=== PATIENT | male | born 1935 | race Caucasian/White ===

== ENCOUNTER 2017-07-30 19:24 | Emergency (ER) | payer MEDICARE, BC ==
[2017-07-30 19:55] LABS: Hemoglobin 15.1 g/dL (14.0-18.0); Mean Corpuscular HGB CONC 33.8 g/dL (32.0-36.0); Mean Corpuscular Hemoglobin 31.3 pg (27.0-31.0); Mean Corpuscular Volume 92.5 fl (80.0-94.0); RBC Distribution Width 13.9 % (11.5-14.5); Red Blood Cell (RBC) Count 4.84 mill/uL (4.70-6.10); White Blood Cell (WBC) Count 6.1 thou/uL (4.8-10.8)
--- NOTE | 2017-07-30 20:08 | RAD ---
RADIOGRAPH CHEST: Indication: Weakness, altered mental status. Comparison: 03-25-16 FINDINGS: There is enlargement of the cardiac silhouette and bilateral pulmonary vascular congestion. Interstit ial prominence and alveolar opacities. Hazy density at the lower hemithoraces may be on the basis of small volume pleural fluid. There are extrinsic artifacts limiting detail. There is vascular calcific ation and osseous degenerative changes. IMPRESSION: Findings favoring decompensated CHF. Recommend continued imaging follow up to confirm resolution. POS: [facility]
[2017-07-30 20:13] LABS: ALT (SGPT) 10 U/L (8-55); AST (SGOT) 15 U/L (5-34); Albumin 3.8 g/dL (3.4-4.8); Alkaline Phosphatase 128 U/L (40-150); Anion Gap 12 mmol/L (10-20); BUN (Urea Nitrogen) 26 mg/dL (8.4-25.7); Bilirubin, Total 1.8 mg/dL (0.2-1.2); CK (CPK) 67 U/L (30-200); Calc. Creatinine Clearance 0 mL/min (70-130); Calcium 9.6 mg/dL (7.8-10.44); Carbon Dioxide 27 mmol/L (23-31); Chloride 102 mmol/L (98-107); Estimated GFR-MDRD 39; Globulin 3.2 g/dL (2.4-3.5); Glucose 155 mg/dL (83-110); Potassium 3.6 mmol/L (3.5-5.1); Sodium 137 mmol/L (136-145)
[2017-07-30 20:17] LABS: CKMB 1.5 ng/mL (0-6.6); Troponin I 0.076 ng/mL (< 0.028)
[2017-07-30 20:18] LABS: Bilirubin Small (Negative); Blood, Urine Negative (Negative); Clarity CLEAR (Clear); Glucose, Urine (Dipstick) Negative (Negative); Leukocyte Negative (Negative); Nitrite Negative (Negative); Protein, Urine (Dipstick) Trace mg/dL (Neg-Trace); pH, Urine 5.5 (5.0-9.0)
[2017-07-30 20:21] LABS: #Eosinphils 0.1 thou/uL (0.0-0.7); #Lymphocytes 0.9 thou/uL (1.20-3.40); #Monocytes 0.7 thou/uL (0.11-0.59); #Neutrophils 4.5 thou/uL (1.40-6.50); %Eosinophils 1.1 % (0.0-10.0); %Lymphocytes 13.8 % (21.0-51.0); %Monocytes 11.8 % (0.0-10.0); %Neutrophils 73.3 % (42.0-75.0); Mean Platelet Volume 9.1 fL (7.4-10.4); PLT Morphology Comment Appears Decreased; Platelet Count 113 thou/uL (130-400); RBC Morphology Normal
== END 2017-07-30 22:55 | disposition home or self-care (01) ==
LOC: ERS 19:24
DX: I11.0 Hypertensive heart disease with heart failure (principal); I50.9 Heart failure, unspecified; I25.2 Old myocardial infarction; G30.9 Alzheimer's disease, unspecified; F02.80 Dementia in other diseases classified elsewhere, unspecified severity, without behavioral disturbance, psychotic disturbance, mood disturbance, and anxiety; E11.9 Type 2 diabetes mellitus without complications; Z87.891 Personal history of nicotine dependence; Z86.73 Personal history of transient ischemic attack (TIA), and cerebral infarction without residual deficits; Z79.899 Other long term (current) drug therapy; Z79.82 Long term (current) use of aspirin
CPT/HCPCS: 36416; 71045; 80053; 81003; 82553; 84484; 85025; 93005; 94760

== ENCOUNTER 2017-11-16 12:08 | Emergency (ER) | payer MEDICARE, BC ==
[2017-11-16 13:35] LABS: #Lymphocytes 0.6 thou/uL (1.20-3.40); #Monocytes 0.7 thou/uL (0.11-0.59); %Eosinophils 0.3 % (0.0-10.0); %Lymphocytes 7.9 % (21.0-51.0); %Monocytes 9.6 % (0.0-10.0); %Neutrophils 82.2 % (42.0-75.0); Hemoglobin 16.1 g/dL (14.0-18.0); Mean Corpuscular Hemoglobin 30.1 pg (27.0-31.0); Mean Corpuscular Volume 91.3 fL (78.0-98.0); Mean Platelet Volume 8.3 fL (7.4-10.4); Platelet Count 122 thou/uL (130-400); RBC Distribution Width 14.5 % (11.5-14.5); Red Blood Cell (RBC) Count 5.35 mill/uL (4.70-6.10); White Blood Cell (WBC) Count 7.3 thou/uL (4.8-10.8)
[2017-11-16 13:41] LABS: Bilirubin Small (Negative); Blood, Urine Negative (Negative); Clarity CLEAR (Clear); Glucose, Urine (Dipstick) Negative (Negative); Leukocyte Small (Negative); Nitrite Negative (Negative); Protein, Urine (Dipstick) 100 mg/dL (Neg-Trace); Specific Gravity, Urine 1.024 (1.002-1.036)
[2017-11-16 13:43] LABS: Bacteria/HPF None Seen HPF (None Seen); Hyaline Casts/LPF 7-10 HYALINE CAST LPF (0-3 Hyaline); Pathc Cast-AUWi Flag 0.58 (0-2.49); RBC/HPF 0-3 HPF (0-3); Squamous Epithelial 0-3 HPF (0-3); WBC/HPF 0-3 HPF (0-3)
--- NOTE | 2017-11-16 13:47 | RAD ---
SINGLE VIEW OF THE CHEST: Comparison: 07-30-17 History: Abdominal pain. Constipation. Weakness. FINDINGS: Single view of the chest shows an enlarged but stable cardiomediastinal silhouette. Atherosclerotic c alcifications are seen in the aorta. There is no evidence of consolidation, mass, or pleural effusion . Increased interstitial markings are stable. IMPRESSION: Cardiomegaly without evidence of acute cardiopulmonary disease. POS: [facility]
[2017-11-16 13:56] LABS: ALT (SGPT) 14 U/L (8-55); AST (SGOT) 18 U/L (5-34); Albumin 4.1 g/dL (3.4-4.8); Alkaline Phosphatase 141 U/L (40-150); Anion Gap 14 mmol/L (10-20); BUN (Urea Nitrogen) 27 mg/dL (8.4-25.7); CK (CPK) 93 U/L (30-200); Calc. Creatinine Clearance 0 mL/min (70-130); Carbon Dioxide 23 mmol/L (23-31); Chloride 106 mmol/L (98-107); Estimated GFR-MDRD 42; Globulin 3.5 g/dL (2.4-3.5); Glucose 117 mg/dL (83-110); Lipase 48 U/L (8-78); Potassium 4.2 mmol/L (3.5-5.1); Protein, Total 7.6 g/dL (5.8-8.1); Sodium 139 mmol/L (136-145)
[2017-11-16 14:05] LABS: CKMB 3.2 ng/mL (0-6.6); Troponin I 0.086 ng/mL (< 0.028)
[2017-11-16] MEDS ORDERED: hydrALAZINE 20 MG/ML VIAL ONE (15:24)
== END 2017-11-16 17:03 | disposition home or self-care (01) ==
LOC: ERS 12:08
DX: R53.1 Weakness (principal); I25.10 Atherosclerotic heart disease of native coronary artery without angina pectoris; F17.210 Nicotine dependence, cigarettes, uncomplicated; I11.0 Hypertensive heart disease with heart failure; I50.9 Heart failure, unspecified; Z86.73 Personal history of transient ischemic attack (TIA), and cerebral infarction without residual deficits; Z79.899 Other long term (current) drug therapy; Z79.82 Long term (current) use of aspirin
CPT/HCPCS: 36415; 71045; 80053; 81003; 81015; 82550; 82553; 83690; 84484; 85025; 87086; 93005; 96361; 96374; J0360

== ENCOUNTER 2018-01-08 10:07 | Observation (INO) | payer MEDICARE, BC ==
--- NOTE | 2018-01-08 10:37 | CT ---
NONCONTRAST HEAD CT: History: Woke up with total vision loss. Previous left eye blindness. Aphasia. Possible previous CVA. Comparison: 06-03-14 Technique: Noncontrast head CT is performed from skull base to skull vertex. FINDINGS: Limited evaluation of the skull base due to motion degradation. Stable hypodensity of the white matter due to a combination of chronic small vessel ischemic change a s well as areas of gliotic change involving the left cerebrum. There is evidence of a previous left M CA distribution infarct with encephalomalacia involving the left frontal and parietal lobes, near the vertex. The remainder of the left cerebrum has preservation of cortical dean white matter differenti ation. Right cortical dean white matter differentiation is also preserved. Remote lacunar infarct in the left lentiform nucleus. Stable configuration of the ventricular system. Unremarkable posterior fossa. Calvarium is intact. Cavernous carotid atherosclerosis is noted. Adequate aeration of the sinuses and mastoid air cells. IMPRESSION: No acute intracranial process. Findings discussed with Dr. Thomas 01-08-18 at 10:19 a.m. POS: [facility]
[2018-01-08 10:44] LABS: ALT (SGPT) 12 U/L (8-55); AST (SGOT) 15 U/L (5-34); Albumin 3.9 g/dL (3.4-4.8); Alkaline Phosphatase 136 U/L (40-150); Anion Gap 12 mmol/L (10-20); BUN (Urea Nitrogen) 27 mg/dL (8.4-25.7); Bilirubin, Total 1.8 mg/dL (0.2-1.2); Calc. Creatinine Clearance 0 mL/min (70-130); Calcium 9.6 mg/dL (7.8-10.44); Carbon Dioxide 25 mmol/L (23-31); Chloride 104 mmol/L (98-107); Estimated GFR-MDRD 42; Glucose 160 mg/dL (83-110); Potassium 4.5 mmol/L (3.5-5.1); Protein, Total 6.9 g/dL (5.8-8.1); Sodium 136 mmol/L (136-145)
[2018-01-08 10:45] LABS: CKMB 1.9 ng/mL (0-6.6)
[2018-01-08 10:50] LABS: INR-International Normal Ratio 1.1; PTT 28.4 SEC (22.9-36.1); Prothrombin Time 14.6 SEC (12.0-14.7)
[2018-01-08 11:13] LABS: #Lymphocytes 0.7 thou/uL (1.20-3.40); #Monocytes 0.5 thou/uL (0.11-0.59); #Neutrophils 5.1 thou/uL (1.40-6.50); %Basophils 0.1 % (0.0-1.0); %Eosinophils 0.7 % (0.0-10.0); %Lymphocytes 10.9 % (21.0-51.0); %Monocytes 7.1 % (0.0-10.0); %Neutrophils 81.2 % (42.0-75.0); Hemoglobin 16.2 g/dL (14.0-18.0); Mean Corpuscular HGB CONC 33.5 g/dL (32.0-36.0); Mean Corpuscular Hemoglobin 30.8 pg (27.0-31.0); Mean Corpuscular Volume 92.1 fL (78.0-98.0); Mean Platelet Volume 9.1 fL (7.4-10.4); PLT Morphology Comment Appears Decreased; Platelet Count 86 thou/uL (130-400); RBC Distribution Width 14.1 % (11.5-14.5); RBC Morphology Normal; Red Blood Cell (RBC) Count 5.26 mill/uL (4.70-6.10); White Blood Cell (WBC) Count 6.3 thou/uL (4.8-10.8)
--- NOTE | 2018-01-08 11:37 | CT ---
CT ANGIOGRAM OF THE HEAD CT ANGIOGRAM OF THE NECK: History: Patient woke up with total vision loss. Comparison: None. Technique: CT angiogram of the head and neck was performed in the axial plane. 3D reformatted images are submitted for interpretation. FINDINGS: There is no pathologic enhancement of the brain parenchyma. Bilateral ocular lenses are appropriately located. Both globes are intact. Retrobulbar fat is preserved. Symmetric attenuation of the optic ne rve and ocular rectus muscles. Aerodigestive tract is patent. No mucosal abnormality. Limited evaluation of the oral cavity due to a rtifact. The midline fatty roof of the tongue appears to be preserved. Epiglottic has a normal calibe r. Preepiglottic fat is preserved. No prevertebral soft tissue swelling. There are varying degrees of central canal stenosis and foraminal narrowing on the basis of degenerative change. There is anterol isthesis of C3 upon C4. Limited evaluation of the contents of the central spinal canal and neural for ella by technique. Symmetric attenuation of the sternocleidomastoid muscles. No evidence of lymphadenopathy. Symmetric a ttenuation of the parotid and submandibular glands. Minimal heterogeneous thyroid gland. Non-emergent thyroid ultrasound is recommended. Upper mediastinum is unremarkable. There is a small left sided pleural effusion. CT ANGIOGRAM: Visualized aortic arch has appropriate enhancement and luminal diameter. Right Parotid: The origin of the right carotid artery has appropriate enhancement and luminal diamete r. The right common carotid artery, carotid bifurcation has appropriate enhancement and luminal diame ter. There is short segment mild stenosis involving the proximal right internal carotid artery with a ssociated hairpin turn. The remainder of the right internal carotid artery has appropriate enhancemen t and luminal diameter. Left carotid: The origin of the left carotid artery has appropriate enhancement and lumen diameter. T he left common carotid artery, carotid bifurcation, and internal carotid artery have appropriate enha ncement in luminal diameter. There is small ulcerative plaque in the left carotid bifurcation measuri ng 3 mm. There is prominence of the left carotid bulb. Correlate for possible previous endarterectomy . There is no significant stenosis by NASCIT criteria. Both cervical vertebral arteries are patent throughout their course in the neck. Note, evaluation of both vertebral artery origins is somewhat limited but appear to be grossly unremarkable. Bilateral subclavian arteries are unremarkable. CT ANGIOGRAM OF THE HEAD: The distal cervical and intracranial internal carotid arteries demonstrate atherosclerosis without si gnificant stenosis. Anterior circulation: The A1 and M1 segments have symmetric enhancement and luminal diameter. Proxima l A2 segments and proximal MCA branches are also symmetric. No significant stenosis at the anterior c ircle of [place]. Posterior circulation: Left PICA artery origin is unremarkable. Limited evaluation of the right carot id artery origin. Both vertebral arteries supply a normal caliber basilar artery. The right P1 segmen t has appropriate enhancement and luminal diameter. The left REVENUE ENFORCEMENT COLLECTION AGENT has a origin. There is short s egment severe stenosis involving the proximal left [employer] AGENT. IMPRESSION: 1. Mild stenosis involving the right internal carotid artery. No evidence of significant stenosis bas ed upon NASCET criteria in the great vessels of the neck. 2. Possible previous endarterectomy change in the left carotid artery with a small ulceration. 3. Severe stenosis of proximal left [employer] AGENT which has a origin. Results of the study were discussed with Dr. Engle 01/08/18 at 10:44 a.m. CODE CR POS: [facility]
--- NOTE | 2018-01-08 13:20 | HP ---
PRIMARY CARE PHYSICIAN: Dr. Vital. REASON FOR ADMISSION: Altered mental status. HISTORY OF PRESENT ILLNESS: An 82-year-old male who has underlying history of multiple strokes in [facility], chronic systolic and diastolic heart failure as well as Alzheimer's dementia. Patient was gregorio t to emergency room for altered mental status by paramedics. This patient's background history has Alzheimer's dementia, which is gradually getting worse. For th e last several weeks, patient forgot to eat. He only drinking milk shake which made by son. He also does not swallow pills and he is more and more forgetful. He predominantly prefers to lie down in a recliner because lying down flat in the bed makes him short of breath. He mostly remains in a recli ner. He requires total assist with the family member to go to the bathroom. The patient is baseline very emotional. 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 Today, the patient's son noticed that patient was having difficulty breathing. He was gasping and he had up rolling of eyeballs and as per patient's son, he felt like the patient fainted and patient ke pt complaining that he cannot see. He did not notice any weakness on a once or other side. Patient was not responding and this type of thing happened twice at home and that scared patient's son and th at is why he called paramedics and subsequently he was brought to ER. In the emergency room, stroke alert was initiated and CT angiography of the brain and CT of brain was done which did not show any acute process. The patient does have chronic history of atrial fibrillation, but he was on warfarin in the past that made allergic reaction and that is why warfarin was discontinued and subsequently nobody initiated t o start anticoagulation therapy. The patient also refused to go for defibrillator placement several years ago when he was a little bit sound mind. At this point, patient cannot make any decision. He is cognitively disabled. His is making dec ision. The patient's wants to be him in comfort care. The patient's reports that in the p ast, he was given option of hospice, but at that time they did not go for hospice, but at this point, patient's condition is gradually declining and that is why they prefer him to be comfortable rather than aggressive route and they confirmed his DNR status. At this point, in the emergency room, routine blood tests showed chronic thrombocytopenia, chronic ki dney disease stage 3 and chronically elevated troponin. Patient is not able to provide any history b y himself, so most of the history obtained from patient's son and patient's bedside. REVIEW OF SYSTEMS: All review of systems tried to review with the patient, but unable to review at t his point because of Alzheimer's dementia and cognitive deficit. PAST MEDICAL HISTORY: Chronic atrial fibrillation, multiple CVA, coronary artery disease with 5 sten ts, chronic systolic and diastolic heart failure, diabetes type 2, external hemorrhoid, left eye blin dness from previous stroke, multiple skin cancer with removal, chronic kidney disease stage 3. PAST SURGICAL HISTORY: Skin cancer removal, cardiac catheterization and stent placement. PAST PSYCHIATRIC HISTORY: Anxiety, depression, Alzheimer's dementia. SOCIAL HISTORY: Patient is . His is present at bedside. He lives at home with his fami ly. He is an ex-smoker. He quit smoking more than 10 years ago. No history of alcohol or other ill icit drug abuse. FAMILY HISTORY: No strong family history of premature coronary artery disease, stroke or cancer. ALLERGIES: No known drug allergy. CURRENT HOME MEDICATIONS: The patient's primary care physician is trying to reduce medication becaus e he is not taking any more pills. He is currently on clonidine 0.1 mg twice daily, hydralazine 100 mg daily, Flomax 0.4 mg daily, Zocor 40 mg p.o. at bedtime, aspirin 81 mg p.o. daily, Lasix 20 mg as needed basis. EMERGENCY ROOM COURSE: Reviewed. PHYSICAL EXAMINATION: VITAL SIGNS: On arrival, blood pressure 126/95, pulse 60 irregular, respiratory rate 23, temperature 98.6, saturation 95% on room air, weight 73.2 kilograms. GENERAL: Patient is currently emotional, appears anxious, cognitively disabled. HEAD: Normocephalic, atraumatic. EYES: Pupils round, reactive to light. Extraocular muscle intact. No nystagmus. ENT: Oropharynx within normal limits. Moist mucous membranes. No pharyngeal erythema, no exudate. NECK: Supple, no JVD, no meningeal signs of irritation. LUNGS: Clear to auscultation without any rhonchi or rales. CARDIAC: S1, S2 irregular, soft systolic murmur noted at parasternal area. No gallop, no rub. ABDOMEN: Soft, bowel sounds present, nontender, nondistended. No organomegaly, no mass, no suprapub ic tenderness. BACK: Examination unremarkable, no CVA tenderness. EXTREMITIES: Upper extremity passive movements of all joints are normal. Lower extremity passive mo vements of all joints are normal. Good distal pulsation. SKIN: No rash. HEMATOLOGICAL SYSTEM: No lymphadenopathy. NEUROLOGIC: Very difficult to examine neurologically because of patient's Alzheimer's dementia, but grossly looking patient may have right-sided chronic weakness and his eye may be blind on the right s emanuel. 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 At this point, neurological examination is very hard to perform and not reliable. IMAGING DATA AND SIGNIFICANT LABORATORY DATA: CT [place], angiography of head and neck show ed mild stenosis of right internal carotid artery. Previous carotid endarterectomy on the left side, severe stenosis of proximal left OPERATING ROOM SCHEDULER, CT brain negative for any acute intracranial process. CBC: W BC 56.3, hemoglobin 16.2, platelet 86. INR 1.1. BMP: Sodium 136, potassium 4.5, chloride 104, carb on dioxide 25, BUN 27, creatinine 1.58, glucose 160, calcium 9.6. LFT: AST 15, ALT 12, alkaline juan sphatase was 136, albumin 3.9, CK-MB 1.9, troponin 0.030. ASSESSMENT AND PLAN/IMPRESSION: 1. Acute encephalopathy. This patient has chronic Alzheimer's dementia and chronically his cognitiv e function is declining. All of suddenly, patient had a change in his baseline mental status. CT an giography done in the emergency room which did show mild stenosis of right internal carotid artery an d severe stenosis of proximal left OPERATING ROOM SCHEDULER, but no perfusion defect. CT brain is negative for any acute intracranial process. The patient does have multiple strokes in past. He does have chronic small ve ssel ischemic changes and gliotic changes in left cerebrum. This patient has multiple risk factors f or stroke including chronic atrial fibrillation, not being on anticoagulation therapy, but at this po int, this patient's long-term prognosis is extremely poor. I discussed with the family member about starting anticoagulation therapy in view of chronic atrial fibrillation, but he is at more risk of bl eeding from thrombocytopenia as well as of fall risk, rather than getting any benefits. Even he had multiple strokes in past and new more stroke will not going to change already worsened cognitive stat us. I think this patient is not a good candidate for long-term anticoagulation and to decide that, I will get a second opinion from Neurology as well. I had a lengthy discussion with the family member . They are concurrent with me not to start any blood thinner medicine. He also does not like any mo re medicine and he is not swallowing any pills. At this point, based on overall scenario, this patie nt needs comfort care and the family member agreed with that and that is why we will call case manage r consultation for hospice for comfort care only and because we are considering comfort care only and he is not contraindicated not to start anticoagulant therapy. 2. Advanced Alzheimer's dementia. Patient's condition is declining. He has a DNR status that is co nfirmed with the family member, he needs supportive care. His quality of life is very poor. 3. Chronic thrombocytopenia. Because of this, patient is also at risk for bleeding with the anticoa gulant therapy. We will avoid any anticoagulant or any heparin products because of his low platelet count. 4. Chronic kidney disease stage 3, stable. Monitor renal function and avoid nephrotoxin agents. 5. Chronically elevated troponin from ischemic heart disease and ischemic cardiomyopathy. 6. History of chronic atrial fibrillation, not a good candidate for chronic anticoagulation therapy, only we will continue aspirin 81 mg p.o. daily. His rate is already controlled. 7. Hypertension, currently well controlled. We will verify the patient's home medication and contin ue hydralazine and clonidine p.r.n. basis. 8. Benign enlargement of prostate. Continue Flomax 0.4 mg daily. 9. Dyslipidemia. Check lipid profile tomorrow and continue Zocor 40 mg p.o. at bedtime. 10. Combined chronic systolic and diastolic heart failure, currently euvolemic. We will continue La six only as needed basis. Continue Coreg 3.125 mg p.o. b.i.d. and lisinopril 2.5 mg p.o. daily. 11. Deep venous thrombosis prophylaxis, sequential compression device boots. 12. Gastrointestinal prophylaxis, Pepcid 20 mg p.o. b.i.d. 13. Coronary artery disease with ischemic cardiomyopathy. Continue aspirin 81 mg p.o. daily, Zocor 40 mg p.o. at bedtime, Coreg 3.125 mg p.o. b.i.d., lisinopril 2.5 mg p.o. b.i.d. 14. Code status: The patient is DNR. The patient's is surrogate decision maker. Disposition plan based on clinical course. We will consult case supervisor for hospice. During this ad mission, we will also try to rule out new stroke with MRI brain and echocardiography to assess EF. N eurology will be consulted.
[2018-01-08] MEDS ORDERED: ISOVUE-370 76%-LOCM 1 ML ONE (13:53)
[2018-01-08] MEDS ORDERED: Diabetic Tussin 200 MG/10 ML UDCUP PO PRN (14:19)
[2018-01-08] MEDS ORDERED: Nitroglycerin 0.4 MG TAB (25 Tab Bottle) SL PRN (14:19)
[2018-01-08] MEDS ORDERED: Mag-Al 1200 mg/1200 mg/30 ML UDCUP PO PRN (14:19)
[2018-01-08] MEDS ORDERED: Senokot 8.6 MG TAB PO PRN (14:19)
[2018-01-08] MEDS ORDERED: Artificial Tears 18 DROP/0.9 ML EA EYE PRN (14:19)
[2018-01-08] MEDS ORDERED: Acetaminophen 325 MG TAB PO PRN (14:19)
[2018-01-08] MEDS ORDERED: Ondansetron HCl/PF 4 MG/2 ML Vial IVP PRN (14:19)
[2018-01-08] MEDS ORDERED: Loratadine 10 MG TAB PO PRN (14:19)
[2018-01-08] MEDS ORDERED: Ondansetron ODT 4 MG TAB PO PRN (14:19)
[2018-01-08] MEDS ORDERED: Chloraseptic Spray 180 ml Bottle PO PRN (14:19)
[2018-01-08] MEDS ORDERED: Milk Of Magnesia 30 ML UDCUP PO PRN (14:19)
[2018-01-08] MEDS ORDERED: hydrALAZINE 20 MG/ML VIAL SLOW IVP PRN (14:19)
[2018-01-08] MEDS ORDERED: Loperamide HCl 2 MG CAP PO PRN (14:19)
[2018-01-08] MEDS ORDERED: Eucerin (Mineral Oil/Petrolatum,White) 30 gm Jar TOP PRN (14:19)
[2018-01-08] MEDS ORDERED: HYDROcodone/Acetaminophen 5/325 mg Tablet PO PRN (14:19)
[2018-01-08] MEDS ORDERED: cloNIDine 0.1 MG TAB PO PRN (14:19)
[2018-01-08] MEDS ORDERED: Sodium Chloride 0.65% Nasal 44 ML BOT EA NARE PRN (14:19)
[2018-01-08 14:50] VITALS: BMI 25.7
[2018-01-08] MEDS ORDERED: Simvastatin 40 MG TAB PO SCH (21:00)
--- NOTE | 2018-01-08 21:16 | CON ---
DATE OF CONSULTATION: 01/08/2018 CONSULTING PHYSICIAN: Hospitalist Service. IMPRESSION: 1. Transient alteration of consciousness, possibly secondary to minor seizure. 2. Vascular dementia over his severe debilitated state. PLAN: Discharge the patient home to hospice. Mr. Hernandez is an 82-year-old man who lives at home with his . He has suffered strokes in the pas t and has expressive aphasia as well as some receptive aphasia has steadily worsened cognitively over the years. He is fairly dependent on her for about everything he does in his day. He still is able to control bowel and bladder. He was apparently sitting on a couch and then had a brief episode of unresponsiveness. This only lasted a matter of seconds. There was no convulsive activity associated with it. They have never seen anything like this before. He came into the emergency room and has h ad a CT and CTA of the head. CTA revealed left posterior communicating artery stenosis. The carotid s were clear. The CT of the brain shows severe extensive small vessel ischemic changes, especially i n the left middle cerebral artery territory. His lab work was all unremarkable. PAST MEDICAL HISTORY: Hypertension. ALLERGIES: None reported. SOCIAL HISTORY: Lives at home with his . No tobacco use. The patient was on aspirin and a stat in prior to admission. REVIEW OF SYSTEMS: Not obtainable due to his aphasia. PHYSICAL EXAMINATION: GENERAL: He is a well-nourished elderly man sitting up in bed in no distress. HEENT: Unremarkable. NECK: Supple. EXTREMITIES: No cyanosis. NEUROLOGIC: He has no verbal output. He seemed to comprehend some minor issues and could not head t o questions. There is no facial asymmetry. He seemed to have fairly symmetric strength in his extre mities. He reportedly was able to walk short distances. No abnormal movements were seen. LABORATORY STUDIES: Reviewed. SUMMARY: Given the overall severe debilitation, I do not see a need to make any changes in his treat ment. His is comfortable with taking home for comfort care.
[2018-01-09] MEDS: Carvedilol 3.125 MG TAB PO SCH ×2 (04:13→08:37)
[2018-01-09 05:49] LABS: Cardiac Risk 3.7 (Less than 4.5)
[2018-01-09 07:44] VITALS: TEMP 97.5
[2018-01-09] MEDS ORDERED: Polyethylene Glycol 3350 17 GM Packet PO SCH (09:00)
[2018-01-09] MEDS ORDERED: Non-Formulary Item 1 EACH (Hydralazine Hcl [Hydralazine Hcl] 100 MG) PO SCH (09:00)
[2018-01-09] MEDS ORDERED: cloNIDine 0.1 MG TAB PO SCH (09:00)
[2018-01-09] MEDS ORDERED: Lisinopril 2.5 MG TAB PO SCH (09:00)
[2018-01-09] MEDS ORDERED: Aspirin 81 mg Enteric Coated Tablet PO SCH (09:00)
[2018-01-09] MEDS ORDERED: Tamsulosin HCl 0.4 MG CAP PO SCH (09:00)
[2018-01-09] MEDS ORDERED: hydrALAZINE 25 MG TAB PO SCH (09:00)
[2018-01-09] MEDS ORDERED: Furosemide 40 MG TAB PO SCH (09:00)
--- NOTE | 2018-01-09 10:09 | DIS ---
DATE OF ADMISSION: 01/08/2018 DATE OF DISCHARGE: 01/09/2018 PRIMARY CARE PHYSICIAN: Juan David Vital M.D. DISCHARGE DISPOSITION: Home with home hospice. PRIMARY DISCHARGE DIAGNOSES: Acute encephalopathy, resolved, suspected transient ischemic attack. SECONDARY DISCHARGE DIAGNOSES: Vascular dementia, chronic thrombocytopenia, hypertension, history of multiple cerebrovascular accident, chronically elevated troponin, dyslipidemia, chronic kidney disea se stage 3, chronic systolic heart failure stage C, CAD, chronic physical deconditioning, coronary ar gabrielle disease, chronic atrial fibrillation. PRIMARY PROCEDURE/OPERATION: None. RADIOLOGICAL INVESTIGATION: CT brain negative for any acute process, but it did show multiple old st roke. CT [place] angiography was unremarkable. TEST RESULTS PENDING ON DISCHARGE: Echocardiography to be done. SIGNIFICANT LABORATORY DATA: WBC 6.3, hemoglobin 16.2, platelet 86. INR 1.1, creatinine 1.58, tropo elen 0.030, LFT normal, LDL 109. DISCHARGE MEDICATIONS: Lasix 40 mg p.o. daily, hydralazine 100 mg p.o. b.i.d., MiraLax 17 grams p.o. daily, potassium chloride 10 mEq p.o. daily, Zocor 20 mg p.o. at bedtime, Flomax 0.4 mg p.o. at bedt cyrus, aspirin 81 mg p.o. daily, Coreg 3.125 mg p.o. b.i.d., lisinopril 2.5 mg p.o. daily. CONTRAINDICATION: The patient is not on chronic anticoagulation therapy with atrial fibrillation bec ause of risk of fall and the risk of bleeding. Risk and benefit over weights the risk and last benef it and that is why chronic anticoagulation is not advised in this particular patient. CODE STATUS: DNR. INPATIENT EFFICIENCY ENGINEER: Dr. Rosette Luna neurologist was consulted while in hospital. TEST RESULTS PENDING ON DISCHARGE: Echocardiography. ALLERGIES: No known drug allergy. DISCHARGE PLAN: Post hospital, patient is discharged home with home hospice. Subsequently, patient will follow up with primary care physician. HOSPITAL COURSE: An 82-year-old male who was admitted by me yesterday. Please see my detailed H&P. At home, patient was having up rolling of eyeballs. He stopped breathing and he was less responsive . As per Neurology interpretation, they suspected minor seizure. This patient does have multiple CV A and because of that, he has vascular dementia. He was brought to ER and a stroke alert was done in the ER and CT brain and CT [place] angiography did not show any acute process. He has business support coordinator brina atrial fibrillation, but he is not a candidate for chronic anticoagulation therapy because of ris k of fall and thrombocytopenia. We admitted this patient to the stroke floor. The patient and family member do not want to pursue fo r MRI because that is not going to change any management. Patient is not interested in going for any AICD in the past and when we discussed goal of care with the family member, they decided to him DNR and they wanted to make him comfortable. At this point, because of his other comorbidities and the l evel of quality of life, we decided to make him comfortable and as less medicine as possible. We con sulted palliative care and hospice case manager to arrange home hospice. The patient is otherwise medically stable. PHYSICAL EXAMINATION: VITAL SIGNS: Currently, temperature 97.5, pulse 54 irregular, respiratory rate 18, saturation 96% on room air, blood pressure 174/84, weight 154 pounds. GENERAL: The patient is currently alert, awake, baseline demented. LUNGS: Clear to auscultation without any rhonchi or rales. CARDIAC: S1, S2 irregular. No significant murmur. ABDOMEN: Soft and benign without any tenderness. EXTREMITIES: No edema. NEUROLOGIC: He is moving all 4 limbs. This patient chronically has weakness on the right side from previous CVA and he has chronic orophary ngeal dysphagia. Speech therapy was consulted before discharge, but this patient does not want any k ind of aggressive intervention including PEG tube, so we will try to modify diet if possible, and esha david's is given instruction to be careful for aspiration. She understood recommendation and exp ressed her understanding as well. At this point, the patient will be discharged later on once hospice is arranged.
[2018-01-09 12:01] VITALS: BP 172/86
--- NOTE | 2018-01-12 10:46 | EKG ---
Test Reason : STROKE Blood Pressure : / mmHG Vent. Rate : 064 BPM Atrial Rate : 075 BPM P-R Int : 000 ms QRS Dur : 086 ms QT Int : 420 ms P-R-T Axes : 000 079 080 degrees QTc Int : 433 ms Atrial fibrillation Possible Inferior infarct , age undetermined Anterolateral infarct , age undetermined Abnormal ECG Confirmed by FRANKIE WASHBURN, TOM Spann ([id number]), index editor EB WILLIAM ([id number]) on 01/12/2018 10:46:07 AM Referred By: Confirmed By:TOM DAVID MD
== END 2018-01-09 14:47 | disposition home or self-care (01) ==
LOC: ERS 10:07 → 2SE 13:18
PROVIDERS: ADMIT Internal Medicine; ATTEND Internal Medicine
DX: G93.40 Encephalopathy, unspecified (principal); D69.6 Thrombocytopenia, unspecified; E78.5 Hyperlipidemia, unspecified; I13.0 Hypertensive heart and chronic kidney disease with heart failure and stage 1 through stage 4 chronic kidney disease, or unspecified chronic kidney disease; N18.3 Chronic kidney disease, stage 3 (moderate); I50.22 Chronic systolic (congestive) heart failure; I25.10 Atherosclerotic heart disease of native coronary artery without angina pectoris; I48.2 Chronic atrial fibrillation; F01.50 Vascular dementia, unspecified severity, without behavioral disturbance, psychotic disturbance, mood disturbance, and anxiety; Z79.82 Long term (current) use of aspirin; Z79.899 Other long term (current) drug therapy
CPT/HCPCS: 70450; 70496; 70498; 80053; 80061; 82553; 82962; 84484; 85025; 85610; 85730; 93005; 93306; 96374; 97139 ×2; 99285; G0378 ×2; 36415; 36416; G8996-GN-CL; G8997-GN-CL; J0360